=== PATIENT | male | born 1945 | race Caucasian/White ===

== ENCOUNTER 2022-01-31 09:10 | Outpatient (CLI) | payer MEDICARE, OTHER ==
[2022-01-31] MEDS ORDERED: Magnevist 469MG/ML 20 ML VIAL ONE (15:40)
== END 2022-01-31 09:11 | disposition home or self-care (01) ==
LOC: CSHMRI 09:10
PROVIDERS: ATTEND Urology
DX: R97.20 Elevated prostate specific antigen [PSA] (principal)
CPT/HCPCS: 36415; 72197; 80053; 80061; 85025

== ENCOUNTER 2022-05-31 10:29 | Outpatient (CLI) | payer MEDICARE, OTHER | END 2022-05-31 10:30 | disposition home or self-care (01) | LOC: CSHCT 10:29 | PROVIDERS: ATTEND Internal Medicine | DX: R10.31 Right lower quadrant pain (principal); J90 Pleural effusion, not elsewhere classified; K76.9 Liver disease, unspecified | CPT/HCPCS: 74177; 82565 ==